=== PATIENT | female | born 1935 | race Caucasian/White ===

== ENCOUNTER 2016-12-29 10:41 | Inpatient (IN) ==
[2016-12-29 13:25] LABS: URINE MICRO REVIEW NEEDED? NO; URINE SOURCE CLEAN CATCH
[2016-12-29 13:29] LABS: BILIRUBIN URINE NEGATIVE (NEGATIVE); BLOOD URINE NEGATIVE (NEGATIVE); COLOR YELLOW; GLUCOSE URINE NEGATIVE (NEGATIVE); LEUKOCYTES URINE NEGATIVE (NEGATIVE); NITRITE URINE NEGATIVE (NEGATIVE); PROTEIN URINE NEGATIVE (NEGATIVE); SP GRAVITY URINE 1.011; TURBIDITY URINE CLEAR (CLEAR); UROBILINOGEN URINE NORMAL (NORMAL)
[2016-12-29 13:31] LABS: UR EPITHELIAL CELLS <10 /HPF (<10); URINE BACTERIA NEGATIVE /HPF; URINE RBC <10 /HPF (<10); URINE WBC <10 /HPF (<10)
--- NOTE | 2016-12-29 13:39 | Diag Imaging Result Doc PS360 ---
EXAM: CHEST-2 VIEWS INDICATION: Abd pain TECHNIQUE: 2 views COMPARISON: 09/08/2013 FINDINGS: The lungs are somewhat hyperinflated, stable. There is evidence of prior granulomatous disease. The lungs are grossly clear, otherwise. There is no discrete pleural fluid collection or pneumothorax. The cardiomediastinal silhouette and central vasculature are grossly unremarkable. IMPRESSION: Suggestion of COPD. No definite acute pathology. Electronically signed by Jp Mccall 12/29/2016 1:37 PM
[2016-12-29 14:12] LABS: MANUAL DIFF NEEDED? NO
[2016-12-29] MEDS: MORPHINE IV PRN ×3 (14:20→23:00)
[2016-12-29] MEDS: ZOFRAN IV PRN ×3 (14:20→23:00)
[2016-12-29 14:36] LABS: ALBUMIN 4.3 g/dL (3.5-5.0); CALCIUM 8.6 mg/dL (8.8-10.2); POTASSIUM 4.6 mmol/L (3.5-5.1); TOTAL BILIRUBIN 0.29 mg/dL (0.20-1.00); TOTAL PROTEIN 6.6 g/dL (6.3-8.3)
[2016-12-29 14:40] LABS: BASO% 0.2 % (0.0-0.8); EOS# 0.08 X1000 (0.0-0.7); EOS% 1.6 % (0.0-10.0); HEMATOCRIT 39.2 % (37.0-47.0); HEMOGLOBIN 13.3 g/dL (12.0-16.0); IMM GRAN# 0.02 X1000 (0.0-0.04); IMM GRAN% 0.4 % (0.0-0.5); LYMPH# 1.25 X1000 (1.2-3.4); LYMPH% 24.9 % (20.5-51.1); MCHC 33.9 g/dL (33-37); MCV 94.2 FL (81-99); MONO# 0.48 X1000 (0.11-0.59); MONO% 9.6 % (1.7-9.3); MPV 10.3 FL (7.4-10.4); NEUT% 63.3 % (42.2-75.2); PLT 193 X1000 (130-400); RBC 4.16 XMIL (4.2-5.4)
[2016-12-29] MEDS: D5 1/2 NS + KCL 10 MEQ 1,000 ML IV SCH (15:21)
--- NOTE | 2016-12-29 16:19 | EKG Report ---
Test Performed on : 12/29/2016 12:59:23 PM Test Reason : abd pain Blood Pressure : / mmHG Vent. Rate : 057 BPM Atrial Rate : 057 BPM P-R Int : 188 ms QRS Dur : 086 ms QT Int : 448 ms P-R-T Axes : 065 -21 050 degrees QTc Int : 436 ms Sinus bradycardia. with marked sinus arrhythmia. Low voltage QRS Borderline ECG When compared with ECG of 10-SEP-2013 05:48, No significant change was found Confirmed by Nate Gallagher DO ([id number]) on 01/01/2017 3:40:57 PM
[2016-12-29] MEDS ORDERED: VALIUM PO PRN (18:35)
--- NOTE | 2016-12-29 20:46 | Diag Imaging Result Doc PS360 ---
EXAM: CT ABD/PELVIS W/PO AND IV CON HISTORY: abd pain TECHNIQUE: CT of the abdomen and pelvis with intravenous and oral contrast and dose reduction (clarity.) COMMENT: There are some coarse linear opacity seen in both costophrenic sulci. This is slightly worse than on 06/01/2012. There is likely some of this is due to fibrosis but there is also likely atelectasis. The aorta is not distended. The mesenteric vessels are patent as are the renal arteries. There is no evidence of bowel obstruction. There is stool throughout the colon. There are granulomata in the spleen. There is a granuloma in the liver, as well as a cyst in the dome of the left lobe.. There is apparently a stone present in the mid left collecting system measuring 8 mm in diameter. Both collecting systems are slightly distended and there are several cysts in the left kidney. There is no evidence of gallstones. The adrenal glands are not enlarged. The pancreas is atrophic in appearance. Pelvis: There is been previous appendectomy. There are diverticula throughout the sigmoid colon without evidence of active diverticulitis. There are no masses. No abnormal fluid collections are present. There is some heterotopic ossification near the ischial tuberosities and calcium pyrophosphate deposition in the symphysis pubis. There are degenerative disc changes in the lumbar spine. IMPRESSION: Constipation. Diverticulosis coli. Left nephrolithiasis. Electronically signed by Emmanuel Lewis 12/29/2016 8:43 PM
--- NOTE | 2016-12-29 21:11 | HISTORY AND PHYSICAL ---
HISTORY OF PRESENT ILLNESS: Ms. Irby is a 81-year-old white female who was admitted with persistent dizziness, severe nausea, intermittent abdominal pain. She has not responded to outpatient therapy. She has been having some dehydration because she cannot eat and has persistent nausea. She has not vomited. She recently had an abdominal ultrasound done which was negative for gallbladder stones; however, she has a stone in the left kidney. Other details of personal, past, and family history are noncontributory except that she is not a smoker. She does not drink. ALLERGIES: She is allergic butalbital sodium, lorazepam and . PAST SURGICAL HISTORY: Reveals history of hysterectomy. She also had bilateral mastectomy. She had 2 back surgeries. She had some exploratory lap done in the past after she had hysterectomy. MEDICATION: Protonix 40 mg daily, meloxicam 15 mg daily, Tranxene 7.5 mg p.r.n., metoprolol 50 mg daily, [place] 10 p.r.n. 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 REVIEW OF SYSTEMS: General: She is extremely weak. Cardiopulmonary: Negative for chest pain or shortness of breath. GI: She has persistent nausea and diffuse abdominal pain. /Endocrine/breasts: Negative. Neurological: Unremarkable. PHYSICAL EXAMINATION: Patient is alert, oriented. VITAL SIGNS: Temperature normal, pulse 51 per minute, respiratory rate 16 per minute. Blood pressure 149/76. HEENT: Head normocephalic. Pupils PERRLA. Fundus examination normal. NECK: Supple. JVP normal. ENT: Examination unremarkable. There is no evidence of lymphadenopathy, thyroid enlargement, pedal edema, calf tenderness, anemia, cyanosis or clubbing. Pedal pulses well felt. BREAST: Patient has bilateral mastectomy. Chest normal inspection. LUNGS: Clear on auscultation. There is minimal wheezing. PMI in the normal position. HEART: Sounds normal. No murmur, gallop or rub noted. ABDOMEN: Nondistended. Diffusely tender. No guarding, rigidity, free fluid, masses, or organomegaly. Bowel sounds normal. RECTAL: Deferred. HYDROELECTRIC MECHANIC/HIGHER FUNCTIONS: Patient is very apprehensive. Cranial nerves normal. Motor and sensory system examination unremarkable. Deep tendon reflexes sluggish. Plantars downgoing. Skull and spine examination reveal painful movements of the lumbosacral spine. SLR bilaterally positive. No cerebellar signs or signs of meningeal irritation. Locomotor exam is unremarkable. SKIN: Reveals presence of significant dehydration with loss of skin turgor and dryness of mucous membranes. CLINICAL IMPRESSION: Abdominal pain, nausea and dehydration. Patient had ultrasound which was negative for cholelithiasis; however, she has a kidney stone in the left kidney. We will try to hydrate her and get a CT scan of the abdomen. cc: Aston Hammond MD
[2016-12-29] MEDS: SODIUM CHLORIDE 0.9% INJ SCH (21:28)
[2016-12-29] MEDS: PROTONIX IV SCH (21:28)
[2016-12-29] MEDS: NORCO-10 PO SCH (21:31)
[2016-12-29 23:36] LABS: URINE SOURCE CLEAN CATCH
[2016-12-29 23:53] LABS: BILIRUBIN URINE NEGATIVE (NEGATIVE); BLOOD URINE NEGATIVE (NEGATIVE); COLOR STRAW; GLUCOSE URINE NEGATIVE (NEGATIVE); LEUKOCYTES URINE NEGATIVE (NEGATIVE); NITRITE URINE NEGATIVE (NEGATIVE); PH URINE 7.5; PROTEIN URINE NEGATIVE (NEGATIVE); SP GRAVITY URINE 1.008; TURBIDITY URINE CLEAR (CLEAR); URINE MICRO REVIEW NEEDED? YES; UROBILINOGEN URINE NORMAL (NORMAL)
[2016-12-29 23:59] LABS: UR EPITHELIAL CELLS <10 /HPF (<10); URINE BACTERIA NEGATIVE /HPF; URINE RBC <10 /HPF (<10); URINE WBC <10 /HPF (<10)
[2016-12-30] MEDS: D5 1/2 NS + KCL 10 MEQ 1,000 ML IV SCH ×3 (00:54→20:23)
[2016-12-30] MEDS: ZOFRAN IV PRN (05:00)
[2016-12-30] MEDS: MORPHINE IV PRN ×2 (05:00→16:17)
[2016-12-30 07:45] LABS: CALCIUM 8.7 mg/dL (8.8-10.2); POTASSIUM 4.1 mmol/L (3.5-5.1)
--- NOTE | 2016-12-30 09:01 | PROGRESS NOTE ---
DATE: 12/30/2016 She is still having a lot of abdominal pain. CT scan shows a left kidney stone as well as diverticulosis. She probably has some diverticulitis. I am going to start her on IV Levaquin. She is feeling slightly better today. Dehydration is still there. cc: Aston Hammond MD
[2016-12-30] MEDS: LOPRESSOR PO SCH (10:45)
[2016-12-30] MEDS: LEVAQUIN 500 MG/D5W 500 MG/100 ML IVPB IV SCH (10:45)
[2016-12-30] MEDS: MOBIC PO SCH (10:50)
[2016-12-30] MEDS: NORCO-10 PO SCH ×4 (11:05→20:23)
[2016-12-30] MEDS: M.V.I.-12 10 ML, FOLIC ACID 1 MG, MAGNESIUM SULFATE 1 GM, THIAMINE 100 MG in NS 1,000 ML IV SCH (11:40)
[2016-12-30] MEDS: PROTONIX IV SCH (20:23)
[2016-12-30] MEDS: SODIUM CHLORIDE 0.9% INJ SCH (20:23)
[2016-12-30] MEDS: VALIUM PO SCH (20:24)
[2016-12-31] MEDS: MORPHINE IV PRN ×2 (05:36→22:09)
[2016-12-31] MEDS: D5 1/2 NS + KCL 10 MEQ 1,000 ML IV SCH ×2 (06:19→18:38)
[2016-12-31] MEDS ORDERED: LINZESS PO ONE (07:17)
[2016-12-31] MEDS ORDERED: DULCOLAX PR ONE (07:17)
--- NOTE | 2016-12-31 07:37 | PROGRESS NOTE ---
DATE: 12/31/2016 SUBJECTIVE: A 81-year-old, white female patient, admitted with dizziness, nausea, intermittent abdominal pain. The patient also had some vertigo not responding to outpatient treatment. The patient did have clinical dehydration. Her CT scan of the abdomen and pelvis results reviewed, which did reveal significant constipation. Nonobstructing kidney stone and diverticulosis. Patient is getting IV hydration. Her oral intake is poor. No typical chest pain or palpitations. No dysuria or hematuria. Past medical history, admission history and physical and medication noted. OBJECTIVE: Vital Signs: Reviewed. Neck: Supple. No JVD. Lungs: Bibasilar crepitations. Heart: S1 and S2 heard. Abdomen: Soft, globular. Diffuse tenderness. No guarding or rigidity. Extremities: No cyanosis, clubbing. No acute DVT. WALL WORKER: Alert, awake able to move all 4 limbs. Crepitation both the knee joints. ASSESSMENT AND PLAN: Patient admitted with: 1. Vertigo. 2. Constipation. 3. Diverticular disease of the colon. Possible diverticulitis. Urinalysis was benign. I am going to continue current treatment. Lovenox for DVT prophylaxis. Will treat her constipation. Check appropriate lab in the morning. Overall plan discussed with the patient and she is in agreement. cc: MD Aston Toure MD
[2016-12-31] MEDS: NORCO-10 PO SCH ×2 (09:17→22:08)
[2016-12-31] MEDS: LEVAQUIN 500 MG/D5W 500 MG/100 ML IVPB IV SCH (09:17)
[2016-12-31] MEDS: M.V.I.-12 10 ML, FOLIC ACID 1 MG, MAGNESIUM SULFATE 1 GM, THIAMINE 100 MG in NS 1,000 ML IV SCH (09:17)
[2016-12-31] MEDS: LOPRESSOR PO SCH (09:18)
[2016-12-31] MEDS: VALIUM PO SCH ×2 (09:18→22:08)
[2016-12-31] MEDS: MOBIC PO SCH (09:18)
[2016-12-31] MEDS: LOVENOX SUBQ SCH (09:19)
[2016-12-31] MEDS: TYLENOL PO PRN (14:57)
[2016-12-31] MEDS: ZOFRAN IV PRN (22:08)
[2016-12-31] MEDS: SODIUM CHLORIDE 0.9% INJ SCH (22:08)
[2016-12-31] MEDS: PROTONIX IV SCH (22:09)
[2017-01-01] MEDS: MORPHINE IV PRN ×4 (01:20→22:57)
[2017-01-01] MEDS: D5 1/2 NS + KCL 10 MEQ 1,000 ML IV SCH ×3 (06:10→22:57)
[2017-01-01 07:18] LABS: MANUAL DIFF NEEDED? NO
[2017-01-01 07:22] LABS: BASO% 0.3 % (0.0-0.8); EOS# 0.17 X1000 (0.0-0.7); EOS% 4.3 % (0.0-10.0); HEMATOCRIT 36.2 % (37.0-47.0); LYMPH# 1.41 X1000 (1.2-3.4); LYMPH% 35.9 % (20.5-51.1); MCH 30.8 PG (27-31); MCHC 33.1 g/dL (33-37); MCV 93.1 FL (81-99); MONO# 0.56 X1000 (0.11-0.59); MONO% 14.2 % (1.7-9.3); MPV 9.8 FL (7.4-10.4); NEUT% 45.3 % (42.2-75.2); PLT 179 X1000 (130-400); RBC 3.89 XMIL (4.2-5.4)
[2017-01-01 07:37] LABS: AGAP 7; ALBUMIN 3.7 g/dL (3.5-5.0); ALKALINE PHOSPHATASE 66 U/L (32-104); BUN 13 mg/dL (8-22); CALCIUM 8.1 mg/dL (8.8-10.2); CHLORIDE 105 mmol/L (98-107); COSMO 275; GOT 15 U/L (10-30); GPT 9 U/L (10-36); POTASSIUM 3.9 mmol/L (3.5-5.1); SODIUM 138 mmol/L (136-145); TCO2 26 mmol/L (25-35); TOTAL BILIRUBIN 0.22 mg/dL (0.20-1.00); TOTAL PROTEIN 5.7 g/dL (6.3-8.3)
[2017-01-01 07:45] LABS: FREE T4 1.13 ng/dL (0.93-1.70)
[2017-01-01] MEDS ORDERED: CARAFATE LIQUID PO ONE (09:13)
[2017-01-01] MEDS: ZOFRAN IV PRN (09:16)
[2017-01-01] MEDS: LEVAQUIN 500 MG/D5W 500 MG/100 ML IVPB IV SCH (09:16)
[2017-01-01] MEDS: LOVENOX SUBQ SCH (09:16)
[2017-01-01] MEDS: M.V.I.-12 10 ML, FOLIC ACID 1 MG, MAGNESIUM SULFATE 1 GM, THIAMINE 100 MG in NS 1,000 ML IV SCH (09:17)
[2017-01-01] MEDS: LOPRESSOR PO SCH (09:17)
[2017-01-01] MEDS: NORCO-10 PO SCH ×2 (09:23→22:26)
[2017-01-01] MEDS: VALIUM PO SCH ×2 (09:23→22:26)
[2017-01-01 09:52] LABS: AMYLASE 55 U/L (20-200); LIPASE 21 U/L (13-60)
--- NOTE | 2017-01-01 09:58 | PROGRESS NOTE ---
DATE: 01/01/2017 SUBJECTIVE: Ms. Irby is still complaining of epigastric discomfort. At times mild nausea. No vomiting. The patient did have a good bowel movement yesterday after I gave her Linzess and Dulcolax suppository. She denied any typical chest pain. Oral intake is fair. No high-grade fever or chills. Her vertigo improved. No dysuria or hematuria. OBJECTIVE: Vital Signs noted. Neck supple. No JVD. Lungs: Bilateral good air entry present. CVS: S1 and S2 heard. Mild epigastric tenderness. No guarding or rigidity. Extremities: No cyanosis, clubbing. No acute DVT. HEALTH CARE SANITARY TECHNICIAN: Alert, awake able to move all 4 limbs. LABORATORY DATA: Done today reviewed. Electrolytes fairly benign. I am going to check amylase and lipase. Magnesium was 2. I am going to add Carafate. CONSIDERATION: 1. Epigastric pain could be due to gastritis. I am going to stop her Mobic. 2. Her other problem includes diverticulosis and diverticulitis. The patient is on IV antibiotics. 3. Hypertension. 4. Vertigo, improved. PLAN: Overall plan discussed with the patient, and she is in agreement. I am going to check amylase and lipase. cc: MD Aston Toure MD
[2017-01-01] MEDS: PROTONIX IV SCH (22:26)
[2017-01-01] MEDS: SODIUM CHLORIDE 0.9% INJ SCH (22:26)
[2017-01-02] MEDS: MORPHINE IV PRN ×3 (06:13→22:21)
[2017-01-02] MEDS: LEVAQUIN 500 MG/D5W 500 MG/100 ML IVPB IV SCH (09:19)
[2017-01-02] MEDS: D5 1/2 NS + KCL 10 MEQ 1,000 ML IV SCH ×2 (09:19→22:21)
[2017-01-02] MEDS: M.V.I.-12 10 ML, FOLIC ACID 1 MG, MAGNESIUM SULFATE 1 GM, THIAMINE 100 MG in NS 1,000 ML IV SCH (09:19)
[2017-01-02] MEDS: VALIUM PO SCH ×2 (09:20→22:22)
[2017-01-02] MEDS: NORCO-10 PO SCH ×2 (09:20→22:22)
[2017-01-02] MEDS: LOPRESSOR PO SCH (09:20)
[2017-01-02] MEDS: LOVENOX SUBQ SCH (09:20)
--- NOTE | 2017-01-02 14:38 | PROGRESS NOTE ---
DATE: 01/02/2017 SUBJECTIVE: Ms. Irby is doing fair. The patient still has abdominal pain, mainly epigastric, early satiety. Oral intake fair to poor. No typical chest pain or palpitations. No dysuria or hematuria. OBJECTIVE: Vital Signs: Noted. Neck: Supple. No JVD Lungs: Bilateral good air entry present. Cardiovascular: S1 and S2 heard. Abdomen: Soft. No distention. Bowel sounds present. Mild epigastric tenderness. No guarding or rigidity. Extremities: No cyanosis, clubbing. No acute DVT. STATEMENT CLERK: Alert, awake. Able to move all 4 limbs. PLAN: The patient is on IV Protonix, IV fluid, and Carafate. I am going to try GI consultation for upper GI endoscope. Overall plan discussed with the patient and she is in agreement. Continue the rest of the treatment. Blood work done yesterday reviewed and discussed with the patient. cc: MD Aston Toure MD
[2017-01-02] MEDS: PROTONIX IV SCH (22:22)
[2017-01-02] MEDS: SODIUM CHLORIDE 0.9% INJ SCH (22:22)
[2017-01-02] MEDS: TYLENOL PO PRN (22:22)
[2017-01-02] MEDS: ZOFRAN IV PRN (22:22)
[2017-01-03] MEDS: MORPHINE IV PRN ×3 (02:32→12:17)
[2017-01-03] MEDS: D5 1/2 NS + KCL 10 MEQ 1,000 ML IV SCH ×2 (06:17→19:20)
--- NOTE | 2017-01-03 06:48 | PROGRESS NOTE ---
DATE: 01/03/2017 SUBJECTIVE: Ms. Irby still has abdominal pain, epigastric discomfort, right upper quadrant discomfort, early satiety, poor oral intake. Mild nausea. No vomiting. Denied any high-grade fever or chills. Oral intake fair to poor. No dysuria or hematuria. OBJECTIVE: Vital Signs: Her vital signs noted. Neck: Supple. No JVD. Lungs: Bilateral good air entry present. Abdomen: Tenderness epigastrium and right upper quadrant. Extremities: No cyanosis or clubbing. No acute DVT. Central Nervous System: Alert, awake, able to move all 4 limbs. LABORATORY DATA: Noted. PLAN: I am going to get abdominal ultrasound for further evaluation. We will get GI consult for upper GI endoscope. I am going to hold her Lovenox today. The patient is already on Protonix. The overall plan was discussed with the patient, and she is in agreement. cc: MD Aston Toure MD
--- NOTE | 2017-01-03 07:47 | Diag Imaging Result Doc PS360 ---
US ABDOMEN-COMPLETE - 01/03/2017 INDICATION: Abdominal Pain COMPARISON: CT from 12/29/2016 FINDINGS: There are a couple small cysts throughout the liver. Background liver echotexture is grossly normal. Common bile duct measures 5 mm. The gallbladder is clear. Stable large stone in the left kidney midpole measuring about 8 mm. No hydronephrosis. Stable bilateral renal cysts. Spleen size is normal measuring about 10 x 9.5 cm. No free fluid. Aorta, IVC, and main portal vein are patent. IMPRESSION: Left-sided renal stone. Cysts in the liver and both kidneys. No change from prior. Electronically signed by Lexx Steele 01/03/2017 7:45 AM
[2017-01-03] MEDS: LEVAQUIN 500 MG/D5W 500 MG/100 ML IVPB IV SCH (09:03)
[2017-01-03] MEDS: LOPRESSOR PO SCH ×2 (09:03→09:54)
[2017-01-03] MEDS: M.V.I.-12 10 ML, FOLIC ACID 1 MG, MAGNESIUM SULFATE 1 GM, THIAMINE 100 MG in NS 1,000 ML IV SCH (09:48)
[2017-01-03] MEDS: NORCO-10 PO SCH ×2 (09:58→22:21)
[2017-01-03] MEDS: VALIUM PO SCH ×2 (10:00→22:21)
[2017-01-03] MEDS ORDERED: DULCOLAX PR ONE (11:37)
[2017-01-03] MEDS ORDERED: GOLYTELY PO ONE (14:00)
--- NOTE | 2017-01-03 19:00 | CONSULTATION ---
DATE OF CONSULTATION: 01/03/2017 PRIMARY CARE DOCTOR: Dr. Hammond. REASON FOR CONSULT: Epigastric pain. HISTORY OF PRESENT ILLNESS: Ms. Irby is a 81-year-old female who was admitted on 12/29/2016 with dizziness, nausea, intermittent abdominal pain in the epigastric and pelvic region. She has decreased p.o. intake and admitted with dehydration and nausea. She had an ultrasound done which showed evidence of kidney stones but no problems with her gallbladder. Her gallbladder was clear. She also complains of constipation and she struggled with that. Her last colonoscopy was 15 years ago. She has not come back for a repeat colonoscopy because of the risk of complications. Her from colonic perforation after a colonoscopy. The patient continues to have symptoms for the last 4 days so GI was consulted for further management of ongoing abdominal pain and nausea. PAST SURGERY HISTORY: Hysterectomy, bilateral mastectomy, 2 back surgeries, exploratory laparotomy, history of peptic ulcer disease and required stomach surgery per the patient. MEDICATIONS AT HOME: Include Protonix 40 mg daily, meloxicam 50 mg daily, Tranxene 7.5 mg p.o. as needed, metoprolol 50 mg daily, [place] 10 as needed. PAST MEDICAL HISTORY: 1. Back pain in the neck and the lumbar spine. 2. History peptic ulcer disease. 3. Constipation. REVIEW OF SYSTEMS: She denies any current fevers, rigors, or chills, chest pain, shortness of breath, dyspnea. Denies any genitourinary or neurologic complaints. Does complain of feeling weak and tired, ongoing chronic nausea, and decreased p.o. intake, worsening abdominal pain, and off and on constipation. Denies any vomiting blood or passing blood in the stools. MEDICATIONS IN THE HOSPITAL: Include Tylenol, multivitamin, D5 half-normal 100 mL/hour, Valium 5 mg p.o. b.i.d., hydrocodone/acetaminophen 1 pill twice daily, Levaquin 500 mg IV once daily, metoprolol 50 mg daily, morphine 1 mg IV q.3 hours as need, Zofran 4 mg IV q.6 hours as needed, Protonix 40 mg IV once daily. She is currently NPO. PHYSICAL EXAMINATION: Vital signs: Temperature 98 degrees, pulse rate of 55, respiratory rate 16, blood pressure 152/75, saturating 100% room air. Body weight of 140 pounds, BMI of 21.3 kg/m2. General appearance: Thinly built, lying in bed, in no acute distress. HEENT: Mild pallor. No icterus. Pupils equal, react to light. Neck: Supple. Chest: Decreased breath sounds. Cardiovascular: Regular rate and rhythm. Abdomen: Soft. Discomfort in the epigastric region. No rebound or guarding. Bowel sounds are present. Extremities: No cyanosis, clubbing. Neurologic: She is alert, awake, and answers all questions. LABS: Hemoglobin and hematocrit are 12 and 36.2, white count 3.93, platelet count of 179,000, MCV of 93.1 . Sodium 138, potassium 3.9, chloride 105, bicarb 22, anion gap 7, BUN of 13, creatinine 0.8, glucose of 90, calcium is 8.1, magnesium 2, total bilirubin is 0.22, AST 15, ALT 9, alkaline phosphatase 63, total protein 5.7, albumin of 3.7, amylase of 55, lipase of 21. IMAGING: In the form of CT scan of the abdomen and pelvis on 12/19/2016 showed: 1. Constipation. 2. Diverticulosis coli. 3. Left-sided nephrolithiasis. No evidence of bowel obstruction, stool throughout the colon. 4. No evidence of any gallstones. The pancreas is atrophic in nature. 5. Degenerate changes in the lumbar spine. Ultrasound of the abdomen done 01/03/2017 showed left-sided renal stone cysts in the liver and kidney. IMPRESSION AND PLAN: 1. Abdominal pain in the pelvic and epigastric region. 2. Nausea. 3. Constipation. 4. Diverticulosis coli. 5. Kidney stones. 6. Mild anemia. RECOMMENDATIONS: 1. Patient will be kept on a clear liquid diet today. We will keep her on Protonix once daily. 2. We will start her on MiraLAX twice daily and Dulcolax once at bedtime. We will schedule for EGD and colonoscopy tomorrow by Dr. Gallardo. The patient is still thinking about performing colonoscopy but she is okay to proceed EGD at this time. So, we will tentatively schedule for both EGD and colonoscopy tomorrow unless patient changes her mind and only wants undergo EGD. I believe most symptoms are being caused by constipation, although she was also taking NSAIDs at home which can cause the possibility of NSAID gastritis or peptic ulcer disease. So I instructed patient to quit using NSAIDs completely. 3. The risks, benefits, indications, and alternatives were explained to the patient and family at bedside. Further recommendations pending the hospital course. cc: MD Aston Wilson MD
[2017-01-03] MEDS: MIRALAX PO SCH (22:20)
[2017-01-03] MEDS: PROTONIX IV SCH (22:21)
[2017-01-03] MEDS: SODIUM CHLORIDE 0.9% INJ SCH (22:21)
[2017-01-04] MEDS: D5 1/2 NS + KCL 10 MEQ 1,000 ML IV SCH ×4 (05:47→20:06)
--- NOTE | 2017-01-04 09:22 | PROGRESS NOTE ---
DATE: 01/04/2017 Ms. Irby is still having some abdominal pain. She was seen by Dr. Frost yesterday. He is going to do the EGD this morning. She had an abdominal ultrasound done yesterday which again revealed left-sided renal store. No cysts in the liver and both kidneys. Otherwise, there was not any acute abnormality noted. We will evaluate her later. She is very nervous this morning. cc: Aston Hammond MD
[2017-01-04] MEDS: LEVAQUIN 500 MG/D5W 500 MG/100 ML IVPB IV SCH (10:00)
[2017-01-04] MEDS ORDERED: XYLOCAINE-MPF 2% ONE (13:16)
[2017-01-04] MEDS ORDERED: DIPRIVAN 1% ONE (13:16)
[2017-01-04] MEDS ORDERED: VERSED ONE (13:17)
[2017-01-04] MEDS: LOPRESSOR PO SCH (14:59)
[2017-01-04] MEDS: NORCO-10 PO SCH ×2 (14:59→22:29)
[2017-01-04] MEDS: M.V.I.-12 10 ML, FOLIC ACID 1 MG, MAGNESIUM SULFATE 1 GM, THIAMINE 100 MG in NS 1,000 ML IV SCH (15:00)
[2017-01-04] MEDS: VALIUM PO SCH ×2 (15:00→22:30)
[2017-01-04] MEDS: MIRALAX PO SCH ×2 (15:00→22:27)
--- NOTE | 2017-01-04 15:20 | OPERATIVE NOTE ---
PROCEDURE DATE: 01/04/17 PROCEDURE: 1. Esophagogastroduodenoscopy. 2. Colonoscopy. PREOPERATIVE DIAGNOSIS: Constipation. Abdominal pain. Mild anemia. POSTOPERATIVE DIAGNOSES: 1. Normal upper gastrointestinal tract. 2. Mild diverticulosis. DETAILS OF OPERATION: After informed consent and adequate intravenous sedation by Anesthesia, the scope introduced through the esophagus, stomach and duodenum. There is mild duodenal deformity, could be from previous ulcer disease. However, there are no active ulcers or gastritis seen. The duodenum is normal. Stomach is normal. Esophagus is normal. The scope was withdrawn. At this point, digital rectal exam performed. Advanced all the way into the cecum. Entire colon is carefully examined. Scattered diverticulosis of the sigmoid colon. Otherwise normal. The patient tolerated procedure well without any immediate complications. cc: MD Aston Spring MD MTDD
[2017-01-04] MEDS: PROTONIX IV SCH (20:05)
[2017-01-04] MEDS: SODIUM CHLORIDE 0.9% INJ SCH (20:05)
[2017-01-04] MEDS: MORPHINE IV PRN (23:44)
[2017-01-05 04:51] VITALS: BP 153/71
[2017-01-05] MEDS: D5 1/2 NS + KCL 10 MEQ 1,000 ML IV SCH (06:32)
[2017-01-05] MEDS: M.V.I.-12 10 ML, FOLIC ACID 1 MG, MAGNESIUM SULFATE 1 GM, THIAMINE 100 MG in NS 1,000 ML IV SCH (08:27)
[2017-01-05] MEDS: MIRALAX PO SCH (08:27)
[2017-01-05] MEDS: LEVAQUIN 500 MG/D5W 500 MG/100 ML IVPB IV SCH (08:27)
[2017-01-05] MEDS: VALIUM PO SCH (08:28)
[2017-01-05] MEDS: NORCO-10 PO SCH (08:28)
[2017-01-05] MEDS: LOPRESSOR PO SCH (08:30)
--- NOTE | 2017-01-05 09:34 | PROGRESS NOTE ---
DATE: 01/05/2017 SUBJECTIVE: Ms. Irby is feeling better. OBJECTIVE: Lungs: Clear. Cardiovascular: Heart sounds are normal. Abdomen: Soft. Much less tender now. ASSESSMENT AND PLAN: She had an EGD and colonoscopy done yesterday which revealed normal stomach and diverticulosis. She will be discharged today. cc: Aston Hammond MD
--- NOTE | 2017-01-05 10:04 | DISCHARGE SUMMARY ---
ADMISSION DATE: 12/29/2016 DISCHARGE DATE: 01/05/2017 HISTORY: Ms. Irby is a 81-year-old white female who was admitted with abdominal pain, nausea, and dehydration. IMAGING AND LABORATORY DATA: Chest x-ray revealed emphysema. Abdominal and pelvic CT revealed the presence of constipation, diverticulosis coli, and left nephrolithiasis. CBC was normal. Electrolytes are normal. BUN came down from 21 to 13, creatinine from 1.1 to 0.8. Urinalysis was negative. HOSPITAL COURSE: She was given IV fluids. She had severe pain in both lower quadrants. It was thought that she had diverticulitis. We decided to start her on Levaquin, which has been given for about 5 to 6 days. Her stomach is normal. She is feeling better. She had EGD and colonoscopy performed, which revealed presence of diverticulosis. I personally feel like she has some mild diverticulitis on the board, and she is now feeling better with IV Levaquin. We will discharge her today. No prescription is given. cc: Aston Hammond MD
== END 2017-01-05 10:21 | disposition home or self-care (01) ==
LOC: DIRADM 10:41 → 3N 11:15
PROVIDERS: ADMIT Internal Medicine; ATTEND Internal Medicine